=== PATIENT | male | born 1990 | race Caucasian/White ===

== ENCOUNTER 2021-07-27 19:48 | Emergency (ER) | payer MEDICAID, OTHER ==
--- NOTE | 2021-07-27 20:12 | ERPHSYRPT ---
- History of Present Illness Time Seen by Provider: 07/27/21 20:08 Source: patient, police Exam Limitations: no limitations Patient Subjective Stated Complaint: jaw pain, feels like it locks up at times Triage Nursing Assessment: pt c/o jaw pain, mostly on right side. Pt has a decayed tooth to rt lower back side of jaw. Physician History: This is a 31-year-old white male who is on Lamictal and was having some jaw pain that began yesterday. He says he found the pill on the floor at the [facility] where [facility] a [facility] and took it. Patient states that he feels as though his jaw is locking. However, he also has dental pain. Timing/Duration: gradual onset, yesterday Severity: mild ENT Location: dental Prearrival Treatment: no prearrival treatment Modifying Factors: Improves With: nothing Associated Symptoms: jaw pain (Lateral), tooth pain Allergies/Adverse Reactions: No Known Drug Allergies Allergy (Unverified 07/27/21 20:00) Home Medications: lamoTRIgine [Lamictal] 100 mg PO HS 07/27/21 [History] Hx Tetanus, Diphtheria Vaccination/Date Given: Yes Hx Influenza Vaccination/Date Given: No Hx Pneumococcal Vaccination/Date Given: No Immunizations Up to Date: Yes Travel Risk - International Travel Have you traveled outside of the country in past 3 weeks: No - Coronavirus Screening Are you exhibiting any of the following symptoms?: No Close contact with a COVID-19 positive Pt in past 14-21 Days: No - Vaccine Status Have you recieved a Covid-19 vaccination: No - Review of Systems Constitutional: No Symptoms Eyes: No Symptoms Ears, Nose, & Throat: Other (Dental pain, bilateral jaw pain) Respiratory: No Symptoms Cardiac: No Symptoms Abdominal/Gastrointestinal: No Symptoms Genitourinary Symptoms: No Symptoms Musculoskeletal: No Symptoms Skin: No Symptoms Neurological: No Symptoms Psychological: No Symptoms Endocrine: No Symptoms Hematologic/Lymphatic: No Symptoms Immunological/Allergic: No Symptoms All Other Systems: Reviewed and Negative - Past Medical History Pertinent Past Medical History: Yes Neurological History: No Pertinent History ENT History: No Pertinent History Cardiac History: No Pertinent History Respiratory History: No Pertinent History Endocrine Medical History: No Pertinent History Musculoskeletal History: No Pertinent History GI Medical History: No Pertinent History History: No Pertinent History Psycho-Social History: Anxiety, Bipolar, Depression Male Reproductive Disorders: No Pertinent History - Past Surgical History Past Surgical History: No - Social History Smoking Status: Current every day smoker How long have you smoked: 19 yrs Exposure to second hand smoke: Yes Drug Use: methamphetamines Patient Lives Alone: No (retirement) - Nursing Vital Signs Nursing Vital Signs: Pain Scale Pain Intensity 2 - Physical Exam General Appearance: no apparent distress, alert Eye Exam: bilateral eye: normal inspection, PERRL, EOMI Ear Exam: bilateral ear: auricle normal, canal normal, TM normal Nasal Exam: normal inspection Throat Exam: dental tenderness (Bilateral molar dental caries) Neck Exam: normal inspection, non-tender, supple, full range of motion, trachea midline Cardiovascular/Respiratory Exam: chest non-tender, no respiratory distress Abdominal Exam: non-tender Neurologic Exam: alert, oriented x 3, cooperative, cement sack breaker II-XII nml as tested, normal mood/affect, nml cerebellar function, nml station & gait, sensation nml Skin Exam: normal color, warm, dry SpO2 Interpretation: normal O2 Delivery: Room Air - Course Nursing assessment & vital signs reviewed: Yes - Progress Progress: unchanged Counseled pt/family regarding: diagnosis, need for follow-up - Departure Departure Disposition: Nursing Home/[facility] Clinical Impression: Jaw pain, Dental caries, Medication reaction Condition: Stable Critical Care Time: No Additional Instructions: Use Tylenol and ibuprofen for pain control. May also add Benadryl 25 mg orally every 8 hours as needed. Take antibiotics as prescribed. Follow-up with a dentist for definitive care. Prescriptions: Cephalexin Mh 500 mg [Keflex 500 mg] 500 mg PO TID #21 cap
[2021-07-27] MEDS ORDERED: Rocephin 1000 MG INJ ONE (20:13)
[2021-07-27] MEDS ORDERED: BENADRYL 50 MG/ML IM ONE (20:13)
[2021-07-27] MEDS ORDERED: BENADRYL 50 MG/ML ONE (20:13)
[2021-07-27] MEDS ORDERED: Rocephin 1000 MG INJ IM ONE (20:13)
[2021-07-27] MEDS ORDERED: XYLOCAINE 1% HCL 20 ML MDV ONE (20:13)
[2021-07-27 20:14] VITALS: O2SAT 97
[2021-07-27 20:38] VITALS: BP 128/63; PULSE 72
== END 2021-07-27 20:30 | disposition home or self-care (01) ==
LOC: EEVIPCON 19:48 → ED 19:48
DX: R68.84 Jaw pain (principal); T50.905A Adverse effect of unspecified drugs, medicaments and biological substances, initial encounter; K02.9 Dental caries, unspecified; Z72.0 Tobacco use; Z79.899 Other long term (current) drug therapy
CPT/HCPCS: 96372; 99284; J0696; J1200